=== PATIENT | female | born 1980 | race Caucasian/White ===

== ENCOUNTER 2019-02-23 09:05 | Emergency (ER) | payer OTHER ==
[~2019-02-23] VITALS: Ht 170.2 cm; Wt 170.6 kg
[~2019-02-23 09:05] MED LIST: FOLI0.4T40 PO; HUM SUBQ; HYDR-1098 PO; LEVO0.124 PO; NEP PO; NIFE60TE8 PO; PREN-556 PO; TRA200 PO; VITD1000 PO
[2019-02-23 09:11] VITALS: BP 194/113
--- NOTE | 2019-02-23 09:15 | NUR ---
MAEVE COMPLETE. SENT TO LOBBY, AWAITING BED IN ED. MD AWARE OF BP.
--- NOTE | 2019-02-23 09:43 | NUR ---
Pt ambulated to bed 9.
[2019-02-23] MEDS ORDERED: NACL 0.9% 1,000 ML IV ONE (09:55)
[2019-02-23] MEDS ORDERED: MORPHINE SULFATE 4 MG/ML SYR IVP ONE (09:55)
[2019-02-23] MEDS ORDERED: ONDANSETRON 4 MG/2 ML VIAL IVP ONE (09:55)
--- NOTE | 2019-02-23 10:00 | NUR ---
38/F C/O MID ABD PAIN WITH N/V/D. PAIN SHARP 10/10 CONSTANT. NONBLOODY VOMITUS. LBM TODAY DIARRHEA. DENIES FEVER, STATES CHILLS. HX - CKD, DM, HTN, HYPOTHYROIDISM. GLENDAIS M,W,F,S OLIGURIC
--- NOTE | 2019-02-23 10:13 | NUR ---
QUICK SKETCH ARTIST AT BEDSIDE. UNABLE TO OBTAIN IV ACCESS AT THIS TIME. ASKED HEAD BOYS GOLF COACH TO TRY TO OBTAIN ACCESS
--- NOTE | 2019-02-23 10:30 | NUR ---
STRAIGHT CATH WITH RETURN OF 40 ML YELLOW URINE.
[2019-02-23 10:46] LABS: BASOPHILS % (AUTO) 0.3 % (0.0-2.0); EOSINOPHILS % (AUTO) 0.4 % (0.0-4.0); HEMOGLOBIN 11.1 g/dL (12.0-16.0); LYMPHOCYTES % (AUTO) 11.4 % (20.5-51.1); MEAN CORPUSCULAR HEMOGLOBIN 31 pg (27-31); MEAN CORPUSCULAR HGB CONC 33 g/dL (33-37); MEAN CORPUSCULAR VOLUME 93.4 fL (80-94); MONOCYTES # (AUTO) 0.3 K/uL (0.8-1.0); MONOCYTES % (AUTO) 3.2 % (1.7-9.3); NEUTROPHILS # (AUTO) 7.7 K/uL (1.8-7.7); NEUTROPHILS % (AUTO) 84.7 % (42.2-75.2); PLATELET COUNT (AUTO) 222 K/uL (140-450); RED BLOOD CELL COUNT(AUTO) 3.64 MIL/uL (4.20-5.40); RED CELL DISTRIBUTION WIDTH 14.5 % (11.6-13.7); WHITE BLOOD COUNT (AUTO) 9.1 K/uL (4.8-10.8)
--- NOTE | 2019-02-23 10:51 | NUR ---
NOTIFIED LOAN SUPERVISOR THAT URINE PREG NEGATIVE.
[2019-02-23 11:06] LABS: ALBUMIN 3.3 g/dL (3.4-5.0); ANION GAP 17.2 (8-16); CARBON DIOXIDE 22.9 mmol/L (21-32); POTASSIUM 4.1 mmol/L (3.5-5.1); TOTAL BILIRUBIN 0.5 mg/dL (0.0-1.0)
[2019-02-23 11:10] LABS: CREATININE 6.7 mg/dL (0.6-1.3)
--- NOTE | 2019-02-23 11:12 | NUR ---
PT TO CT SCAN VIA W/C
[2019-02-23] MEDS ORDERED: INSULIN REGULAR, HUMAN 100 UNIT/ML VIAL IVP ONE ×2 (11:30→13:20)
[2019-02-23] MEDS ORDERED: METOCLOPRAMIDE 10 MG/2 ML INJ VIAL IVP ONE (12:00)
[2019-02-23] MEDS ORDERED: diphenhydrAMINE 50 MG/ML VIAL IVP ONE (12:00)
--- NOTE | 2019-02-23 12:00 | NUR ---
NOTIFIED DR. DYER THAT PT STILL C/O 01/02 PAIN AND NAUSEA. NO VOMITING.
[2019-02-23 12:09] LABS: APPEARANCE,URINE CLOUDY (CLEAR); BILIRUBIN,URINE NEGATIVE (NEGATIVE); BLOOD, URINE 2+ (NEGATIVE); COLOR,URINE YELLOW (YELLOW); LEUKOCYTE ESTERASE ,URINE NEGATIVE (NEGATIVE); NITRITE, URINE NEGATIVE (NEGATIVE); UGLUCOSE 3+ (NEGATIVE)
[2019-02-23 12:20] LABS: WBC,URINE 0-5 /HPF (0-5)
[2019-02-23 12:22] LABS: URINE AMORPHOUS URATE 2+ /HPF (None Seen)
--- NOTE | 2019-02-23 12:46 | NUR ---
FSBS 526 MG/DL AT THIS TIME. PER STANDPIPE TENDER, RECHECK FSBS IN ONE HOUR.
--- NOTE | 2019-02-23 13:35 | NUR ---
BLOOD SUGAR 496
--- NOTE | 2019-02-23 13:35 | NUR ---
NOTIFIED DR. DYER THAT 1ST DOSE OF HUMULIN R 10 UNITS WAS GIVEN VIA INCORRECT ROUTE (SUBQ ROUTE). PER DR. DYER, GIVE THE 2ND ORDERED DOSE OF HUMULIN R 10 UNITS IVP. Addendum: 02/23/19 at 1641 by JANETH [employer] AWARE
--- NOTE | 2019-02-23 14:34 | NUR ---
BLOOD SUGAR 453
--- NOTE | 2019-02-23 15:00 | NUR ---
PT RESTING IN BED. VSS. WILL CONTINUE TO MONITOR.
--- NOTE | 2019-02-23 15:39 | NUR ---
BLOOD SUGAR 384. ERMD MADE AWARE
--- NOTE | 2019-02-23 15:52 | NUR ---
Hanna dong in ED - 02/23/19 at 1552 by TOSHIA BLOOD SUGAR 384. ERMD MADE AWARE
[2019-02-23 16:00] VITALS: BP 159/72
--- NOTE | 2019-02-23 16:00 | NUR ---
Patient discharged with v/s stable. Written and verbal after care instructions given and explained. Pt encouraged to try a clear liquid diet. Avoid chocolate, caffeine, spicy and fatty foods. Pt also encouraged to drink plenty of fluids and increase fiber intake when taking rx norco. Patient alert, oriented and verbalized understanding of instructions. Ambulatory with steady gait. All questions addressed prior to discharge. ID band removed. Patient advised to follow up with PMD. Rx of NORCO 5MG AND ZOFRAN 4MG WAS given. Patient educated on indication of medication including possible reaction and side effects. Opportunity to ask questions provided and answered.
== END 2019-02-23 16:00 | disposition home or self-care (01) ==
LOC: MED 09:05
DX: R10.84 Generalized abdominal pain (principal); R19.7 Diarrhea, unspecified; E03.9 Hypothyroidism, unspecified; E11.22 Type 2 diabetes mellitus with diabetic chronic kidney disease; I12.0 Hypertensive chronic kidney disease with stage 5 chronic kidney disease or end stage renal disease; N18.6 End stage renal disease; Z99.2 Dependence on renal dialysis; Z98.890 Other specified postprocedural states; Z79.899 Other long term (current) drug therapy; Z79.4 Long term (current) use of insulin
CPT/HCPCS: 36415; 74176; 80053; 81001; 81025; 82948; 83690; 85025; 87086; 96361; 96372; 96374; 96375; 99284; C1758; J1200; J1815; J2270; J2405; J2765; J7030